=== PATIENT | male | born 1970 | race Two or more races ===

== ENCOUNTER 2024-11-07 16:31 | Emergency (ER) | payer MEDICAID, SELFPAY ==
[2024-11-07 16:59] VITALS: BP 141/91; PULSE 97; RESP 18; TEMP 37.6; O2SAT 95; BMI 39.1
--- NOTE | 2024-11-07 17:04 | XR_ITS ---
Examination: Abdomen sonogram, Limited Date and time of exam: November 07, 2024 1719 hours INDICATIONS: Upper abdominal pain beginning 2 days ago Technique: Real-time white scale transabdominal sonographic images of the upper abdomen obtained. Findings: Contracted gallbladder Common bile duct 0.4 cm no stones Pancreatic head prominent 3.9 cm Liver 16.8 cm fatty infiltration smooth contour Normal hepatopedal portal venous flow Patent IVC IMPRESSION: Repeated gallbladder portion of this study with fasting Prominent pancreatic head 3.9 cm, if pancreatitis is a clinical consideration, suggest CT scan abdomen and pelvis post intravenous contrast follow-up
--- NOTE | 2024-11-07 17:05 | PD.EDRME ---
Rapid Medical Screening Exam RME Arrival date/time: 11/07/24 16:31 54-year-old male with no known medical history presents to the emergency room with a chief complaint of 8 out of 10 epigastric pain that radiates to the right upper quadrant x 2 days I have greeted and performed a focused initial assessment of this patient. A comprehensive ED assessment and evaluation of the patient, analysis of all test results, and completion of the medical decision making process will be conducted by additional ED providers. Chief Complaint: Abdominal Pain Time Seen by Provider: 11/07/24 16:45 Vital signs: Vital Signs Temperature 99.7 F 11/07/24 16:59 Pulse Rate 97 11/07/24 16:59 Respiratory Rate 18 11/07/24 16:59 Blood Pressure 141/91 H 11/07/24 16:59 Pulse Oximetry (%) 95 11/07/24 16:59 Oxygen Delivery Method Room Air 11/07/24 16:59 Vital signs reviewed by provider: Yes
[2024-11-07 17:29] LABS: Basophils % (Auto) 0 % (0-2.5); Eosinophils # (Auto) 0.1 Thou/mm3 (0.0-0.5); Eosinophils % (Auto) 1 % (0-10); Hematocrit 43.9 % (41.0-53.0); Hemoglobin 15.5 g/dL (13.5-16.0); Immature Granulocytes % (Auto) 1 % (0-0); Immature Granulocytes Auto 0.06 Thou/mm3 (0.00-0.00); Lymphocytes # (Auto) 0.8 Thou/mm3 (1.0-4.8); Lymphocytes % (Auto) 8 % (10-50); Mean Corpuscular HGB Conc 35.3 g/dl (31.0-37.0); Mean Corpuscular Hemoglobin 30.6 pg (25.0-35.0); Mean Corpuscular Volume 87 fL (80-100); Monocytes # (Auto) 0.7 Thou/mm3 (0.0-0.8); Monocytes % (Auto) 7 % (0-12); Neutrophils # (Auto) 8.9 Thou/mm3 (1.8-7.7); Neutrophils % (Auto) 84 % (37-80); Nucleated Red Blood Cell % 0 /100 WBC (0); Platelet Count 218 Thou/mm3 (140-440); RDW Standard Deviation 40.9 fL (35.1-43.9); Red Blood Count 5.07 Miln/mm3 (4.50-5.90); White Blood Count 10.6 Thou/mm3 (3.8-10.6)
[2024-11-07 17:59] LABS: Alanine Aminotransferase 65 U/L (10-49); Albumin, Serum 4.6 gm/dL (3.5-5.0); Albumin/Globulin Ratio 1.5 (1.2-2.2); Alkaline Phosphatase 74 U/L (46-116); Anion Gap 8 (7-16); Aspartate Amino Transferase 35 U/L (0-34); BUN/Creatinine Ratio 19 Ratio (12-20); Bilirubin,Total 1.8 mg/dL (0.3-1.2); Blood Urea Nitrogen 19 mg/dL (9-23); Calcium 8.6 mg/dL (8.3-10.6); Calcium (Corrected) 8.6 mg/dL (8.5-10.1); Carbon Dioxide 23.6 mMol/L (20.0-31.0); Chloride 107 mMol/L (98-107); Estimated Creatinine Clearance 95.1 mL/min (>60); Globulin 3.1 gm/dL (2.3-3.5); Glucose 118 mg/dL (74-106); Lipase 32 U/L (12-53); Osmolality,Calculated 280 (275-295); Potassium 3.6 mMol/L (3.4-5.1); Sodium 139 mMol/L (136-145); Total Protein 7.7 gm/dL (5.7-8.2); eGFR > 60 See Note
[2024-11-07 18:05] LABS: Collection Type, Urine Clean Catch; RBC,Urine 0 /hpf (0-3); WBC,Urine 0 /hpf (0-5)
[2024-11-07] MEDS: ONDANSETRON ODT 4 MG TABRAP PO (18:10)
[2024-11-07] MEDS: HYDROcodone/APAP 5/325 TABLET 1 TAB PO (18:10)
[2024-11-07] MEDS: MG HYD/AL HYD/SIME (Maalox Reg) SUSP 30 ML UDC PO (18:10)
[2024-11-07 18:21] LABS: Bacteria,Urine Rare; Bilirubin,Urine Negative (Negative); Blood,Urine Negative (Negative); Clarity,Urine Clear (Clear/Hazy); Color,Urine Yellow (Lt Yel-Yel); Glucose, Urine Negative (Negative); Ketones,Urine Negative (Negative); Leukocyte Esterase,Urine Negative (Negative); Nitrite,Urine Negative (Negative); Protein,Urine Trace (Neg - Trace); Specific Gravity,Urine 1.036 (1.001-1.035); Squamous Epithelial Cell,Urine 3 /hpf (0-5); Urobilinogen,Urine Negative mg/dL (0.0-1.0)
[2024-11-07 23:09] VITALS: BP 141/90; PULSE 76; RESP 16; TEMP 37; O2SAT 96
--- NOTE | 2024-11-08 00:24 | PC.NURSE ---
[facility]
--- NOTE | 2024-11-08 00:38 | PC.NURSE ---
[facility]
== END 2024-11-08 00:40 | disposition left against medical advice (07) ==
LOC: SERX 20:33
PROVIDERS: Nurse Practitioner Family; Emergency Provider Emergency Medicine
DX: R10.13 Epigastric pain (principal); Z53.29 Procedure and treatment not carried out because of patient's decision for other reasons
CPT/HCPCS: 36415; 76705; 80053; 81001; 83690; 85025; 87086; 99281; Q0162; A9270